=== PATIENT | female | born 1940 | race Hispanic/Latino ===

== ENCOUNTER 2021-05-22 15:34 | Outpatient (CLI) | payer MEDICARE ==
[2021-05-22 16:16] LABS: #Basophils 0.1 thou/uL (0.0-0.2); #Eosinphils 0.1 thou/uL (0.0-0.7); #Lymphocytes 1.9 thou/uL (1.20-3.40); #Monocytes 0.6 thou/uL (0.11-0.59); #Neutrophils 5.1 thou/uL (1.40-6.50); %Basophils 1.4 % (0.0-1.0); %Eosinophils 1.6 % (0.0-10.0); %Lymphocytes 23.7 % (21.0-51.0); %Monocytes 7.4 % (0.0-10.0); %Neutrophils 65.8 % (42.0-75.0); Hemoglobin 14.2 g/dL (12.0-16.0); Mean Corpuscular HGB CONC 32.8 g/dL (32.0-36.0); Mean Corpuscular Hemoglobin 29.7 pg (27.0-31.0); Mean Corpuscular Volume 90.8 fL (78.0-98.0); Mean Platelet Volume 5.3 fL (7.4-10.4); Platelet Count 370 thou/uL (130-400); RBC Distribution Width 11.5 % (11.5-14.5); Red Blood Cell (RBC) Count 4.77 mill/uL (4.20-5.40); White Blood Cell (WBC) Count 7.8 thou/uL (4.8-10.8)
[2021-05-22 16:27] LABS: ALT (SGPT) 13 U/L (8-55); AST (SGOT) 14 U/L (5-34); Alkaline Phosphatase 68 U/L (40-110); Anion Gap 17 mmol/L (10-20); BUN (Urea Nitrogen) 15 mg/dL (9.8-20.1); Bilirubin, Total 0.7 mg/dL (0.2-1.2); Calc. Creatinine Clearance 0 mL/min (70-130); Calcium 10.7 mg/dL (7.8-10.44); Carbon Dioxide 24 mmol/L (23-31); Chloride 105 mmol/L (98-107); Globulin 4.6 g/dL (2.4-3.5); Glucose 110 mg/dL (83-110); Protein, Total 8.6 g/dL (5.8-8.1); Sodium 141 mmol/L (136-145)
[2021-05-22 16:47] LABS: Thyroid Stimulating Hormone 1.7883 uIU/mL (0.35-4.94)
[2021-05-22 21:02] LABS: Hemoglobin A1c 5.4 % (4.0-6.0)
[2021-05-22 21:23] LABS: Free T4 (Free Thyroxine) 1.04 ng/dL (0.70-1.48)
== END 2021-05-22 15:35 | disposition home or self-care (01) ==
LOC: MADLAB 15:34
PROVIDERS: ATTEND Family Medicine
DX: E03.9 Hypothyroidism, unspecified (principal); R53.83 Other fatigue
CPT/HCPCS: 36415; 80053; 83036; 84439; 84443; 85025

== ENCOUNTER 2021-06-02 13:04 | Outpatient (CLI) | payer MEDICARE ==
[~2021-06-02 13:04] MED LIST: Iopamidol 370 76% 100 ML VIAL ONE
== END 2021-06-02 13:05 | disposition home or self-care (01) ==
LOC: MADCT 13:04
PROVIDERS: ATTEND Family Medicine
DX: R10.11 Right upper quadrant pain (principal); K42.9 Umbilical hernia without obstruction or gangrene; K63.89 Other specified diseases of intestine; N28.89 Other specified disorders of kidney and ureter
CPT/HCPCS: 74177; Q9967

== ENCOUNTER 2021-06-19 14:22 | Outpatient (CLI) | payer MEDICARE | END 2021-06-19 14:23 | disposition home or self-care (01) | LOC: MADLAB 14:22 → MADRAD 14:23 | PROVIDERS: ATTEND Family Medicine | DX: M25.552 Pain in left hip (principal) ==

== ENCOUNTER 2022-12-01 10:31 | Outpatient (CLI) | payer MEDICARE | END 2022-12-01 10:32 | disposition home or self-care (01) | LOC: MADRAD 10:31 | PROVIDERS: ATTEND Internal Medicine | DX: I10 Essential (primary) hypertension (principal) | CPT/HCPCS: 71046 ==

== ENCOUNTER 2025-01-01 12:41 | Outpatient (CLI) | payer MEDICARE | END 2025-01-01 12:42 | disposition home or self-care (01) | LOC: MADLAB 12:41 | PROVIDERS: ATTEND Family Medicine | DX: M25.562 Pain in left knee (principal); M17.12 Unilateral primary osteoarthritis, left knee; M21.162 Varus deformity, not elsewhere classified, left knee ==